=== PATIENT | male | born 1970 | race American Indian/Alaskan Native ===

== ENCOUNTER 2019-03-07 11:13 | Emergency (ER) | payer SELFPAY ==
--- NOTE | 2019-03-07 11:27 | Emergency Department Report ---
Blank Doc - Documentation Documentation: 48-year-old male that presents with noticing blood in his stool after whipping. Denies any abdominal pain or n/v. Denies any symptoms. Was sent by PCP. This initial assessment/diagnostic orders/clinical plan/treatment(s) is/are subject to change based on patient's health status, clinical progression and re- assessment by fellow clinical providers in the ED. Further treatment and workup at subsequent clinical providers discretion. Patient/guardians urged not to elope from the ED as their condition may be serious if not clinically assessed and managed. Initial orders include: 1- Patient sent to [facility] for further evaluation and treatment 2- labs 3- UA
[2019-03-07 13:26] LABS: Basophils # (Auto) 0.1 K/mm3 (0.0-0.1); Basophils % (Auto) 1.2 % (0.0-1.8); Eosinophils # (Auto) 1.1 K/mm3 (0.0-0.4); Eosinophils % (Auto) 9.9 % (0.0-4.3); Hematocrit 52.5 % (35.5-45.6); Hemoglobin 17.7 gm/dl (11.8-15.2); Lymphocytes # (Auto) 2.2 K/mm3 (1.2-5.4); Mean Corpuscular HGB Conc 34 % (32-34); Mean Corpuscular Volume 87 fl (84-94); Monocytes # (Auto) 0.8 K/mm3 (0.0-0.8); Monocytes % (Auto) 7.3 % (0.0-7.3); Platelet Count 299 K/mm3 (140-440); Red Blood Count 6.01 M/mm3 (3.65-5.03); Red Cell Distribution Width 14.5 % (13.2-15.2)
[2019-03-07 15:12] LABS: Alanine Aminotransferase 19 units/L (7-56); Albumin 3.8 g/dL (3.9-5); BUN/Creatinine Ratio 10; Blood Urea Nitrogen 9 mg/dL (9-20); Calcium 8.8 mg/dL (8.4-10.2); Hemolysis Index 3
--- NOTE | 2019-03-07 15:50 | Emergency Department Report ---
ED General Adult HPI - General Chief complaint: GI Bleed Stated complaint: BLOOD IN STOOL Time Seen by Provider: 03/07/19 11:25 Source: patient Mode of arrival: Ambulatory Limitations: No Limitations - History of Present Illness Initial comments: Patient is a 48-year-old -[place]iss male with no significant past medical history who is presenting with possible GI bleed. Patient states that yesterday he had 2 episodes where he noticed large amount of blood on the toilet paper after having bowel movement. Patient denies straining. Patient states is been no pain. Patient states the blood was coating the stool but did not fill toilet. stool was was well formed and there was no watery diarrhea. Patient denies abdominal pain nausea vomiting at this time. ED Review of Systems ROS: Stated complaint: BLOOD IN STOOL Other details as noted in HPI Comment: All other systems reviewed and negative ED Past Medical Hx - Past Medical History Previous Medical History?: No - Surgical History Past Surgical History?: No - Social History Smoking Status: Current Every Day Smoker Substance Use Type: Alcohol, Marijuana ED Physical Exam - General Limitations: No Limitations General appearance: alert, in no apparent distress - Head Head exam: Present: atraumatic, normocephalic - Eye Eye exam: Present: normal appearance - ENT ENT exam: Present: mucous membranes moist - Neck Neck exam: Present: normal inspection - Respiratory Respiratory exam: Present: normal lung sounds bilaterally. Absent: respiratory distress - Cardiovascular Cardiovascular Exam: Present: regular rate, normal rhythm. Absent: systolic murmur, diastolic murmur, rubs, gallop - GI/Abdominal GI/Abdominal exam: Present: soft, normal bowel sounds. Absent: distended, tenderness, guarding, rebound - Rectal Rectal exam: Present: normal inspection, heme (-) stool. Absent: black stool, bloody stool, fecal impaction, hemorrhoids - Extremities Exam Extremities exam: Present: normal inspection - Back Exam Back exam: Present: normal inspection - Neurological Exam Neurological exam: Present: alert, oriented X3 - Psychiatric Psychiatric exam: Present: normal affect, normal mood - Skin Skin exam: Present: warm, dry, intact, normal color. Absent: rash ED Course Vital Signs 03/07/19 11:25 Temperature 98.4 F Pulse Rate 109 H Respiratory 15 Rate Blood Pressure 112/78 O2 Sat by Pulse 96 Oximetry ED Medical Decision Making - Lab Data Result diagrams: 03/07/19 13:12 03/07/19 13:12 - Medical Decision Making And had a negative occult blood stool. Patient likely with a small internal hemorrhoid that bled but has stopped. No further bleeding is appreciated this time the patient laboratory studies are within normal limits. Patient stable for discharge. Patient be given follow-up with GI as needed. Critical care attestation.: If time is entered above; I have spent that time in minutes in the direct care of this critically ill patient, excluding procedure time. ED Disposition Clinical Impression: Hematochezia Disposition: DC-01 TO HOME OR SELFCARE Is pt being admited?: No Does the pt Need Aspirin: No Condition: Stable Instructions: Rectal Bleeding (ED), Hemorrhoids (ED) Referrals: [facility] [Provider Group] - 3-5 Days Time of Disposition: 15:52
[2019-03-07 16:15] VITALS: BP 115/85
== END 2019-03-07 16:15 | disposition home or self-care (01) ==
LOC: ED 11:13
DX: K92.1 Melena (principal); F17.200 Nicotine dependence, unspecified, uncomplicated; F12.10 Cannabis abuse, uncomplicated
CPT/HCPCS: 36415; 80053; 85025; 99283

== ENCOUNTER 2019-03-23 06:03 | Emergency (ER) | payer SELFPAY ==
[2019-03-23] MEDS ORDERED: CYCLOBENZAPRINE 10 MG TAB PO ONE (07:37)
[2019-03-23] MEDS ORDERED: KETOROLAC 30 MG/1 ML INJ IM ONE (07:37)
--- NOTE | 2019-03-23 07:38 | Emergency Department Report ---
ED Back Pain/Injury HPI - General Chief Complaint: Back Pain/Injury Stated Complaint: BACK PAIN DUE TO WORK Time Seen by Provider: 03/23/19 07:36 Source: patient Limitations: No Limitations - History of Present Illness Initial Comments: This is a 40-year-old male with no prior medical history who presents to ED complaining of lower right-sided back pain that started Wednesday evening. 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 Patient states he's been having pain since then. Patient states pain is only localized to mid to right lower back. Patient denies any problems with his bowel movement or urination. He denies inability to walk. Patient is ambulatory and no loss of sensation. Complaint: back pain, back injury - Related Data Previous Rx's Medication Instructions Recorded Last Taken Type Cyclobenzaprine [Flexeril 10 MG 10 mg PO QHS #20 tablet 03/23/19 Unknown Rx TAB] Ibuprofen [Motrin] 800 mg PO Q8HR #20 tablet 03/23/19 Unknown Rx ED Review of Systems ROS: Stated complaint: BACK PAIN DUE TO WORK Other details as noted in HPI Comment: All other systems reviewed and negative ED Back Pain Physical Exam - Exam General: Vital signs noted. No distress. Alert and acting appropriately. Back/Abdomen: No Abdominal Tenderness, No Perithoracic Tenderness, No Perilumbar Tenderness, No Sacroiliac Tenderness, No Flank Tenderness, No Straight Leg Raise Pain Neuro: Yes Normal Sensation, Yes Normal DTR's, Yes Normal Gait, No Motor Weakness ED Course Vital Signs 03/23/19 06:07 Temperature 98.1 F Pulse Rate 92 H Respiratory 18 Rate Blood Pressure 113/78 O2 Sat by Pulse 97 Oximetry Ed Back Pain Tests - Tests Tests: Normal X Rays ED Medical Decision Making - Radiology Data Radiology results: report reviewed, image reviewed Fluoro Time In Minutes: LUMBAR SPINE 3 VIEWS INDICATION / CLINICAL INFORMATION: back pain COMPARISON: None available. FINDINGS: BONES / JOINT(S): No acute fracture or subluxation. Mild degenerative disc disease L4-L5. SOFT TISSUES: No significant abnormality. ADDITIONAL FINDINGS: None. Signer Name: Santo Judge MD Signed: 03/23/2019 8:16 AM Workstation Name: [id number] Transcribed By: ES Dictated By: Santo Judge MD Electronically Authenticated By: Santo Judge MD Signed Date/Time: 03/23/19 0816 - Medical Decision Making 48-year-old male presents to ED with low back muscle strain ED course: Patient received Toradol and Flexeril in ED. X-ray of the lumbar spine shows no acute process. Mild DJD noted. See report above Vital signs are normal patient is in no acute distress Discussed with patient follow-up with primary care physician. Discussed the patient and take medications as prescribed. Patient has no neurological deficit. Patient is alert and oriented 3 and understands all instructions given. Discussed drowsiness effect of Flexeril makes her drowsy and not to operate machinery while taking flexeril Critical care attestation.: If time is entered above; I have spent that time in minutes in the direct care of this critically ill patient, excluding procedure time. ED Disposition Clinical Impression: Strain of muscle, fascia and tendon of lower back, initial encounter Disposition: - TO HOME OR SELFCARE Is pt being admited?: No Does the pt Need Aspirin: No Condition: Stable Instructions: Muscle Strain (ED), Acute Low Back Pain (ED), Low Back Strain (ED) Additional Instructions: Make sure to follow up with the primary care physician as discussed. Take all your medications as you've been prescribed. If you have any worsening symptoms or develop new symptoms please return to ED immediately. Prescriptions: Cyclobenzaprine [Flexeril 10 MG TAB] 10 mg PO QHS #20 tablet Ibuprofen [Motrin] 800 mg PO Q8HR #20 tablet Referrals: [facility] [Primary Care Provider] - 3-5 Days Forms: Work/School Release Form(ED) Time of Disposition: 08:25
--- NOTE | 2019-03-23 08:21 | XRay Report ---
LUMBAR SPINE 3 VIEWS INDICATION / CLINICAL INFORMATION: back pain COMPARISON: None available. FINDINGS: BONES / JOINT(S): No acute fracture or subluxation. Mild degenerative disc disease L4-L5. SOFT TISSUES: No significant abnormality. ADDITIONAL FINDINGS: None. Signer Name: Santo Judge MD Signed: 03/23/2019 8:16 AM Workstation Name: [id number]
[2019-03-23 08:46] VITALS: BP 111/76
== END 2019-03-23 08:49 | disposition home or self-care (01) ==
LOC: ED 06:03
DX: S39.012A Strain of muscle, fascia and tendon of lower back, initial encounter (principal); X58.XXXA Exposure to other specified factors, initial encounter; Y93.89 Activity, other specified; Y92.89 Other specified places as the place of occurrence of the external cause; Y99.8 Other external cause status
CPT/HCPCS: 72100; 96372; 99283; J1885

== ENCOUNTER 2020-02-26 10:18 | Emergency (ER) | payer SELFPAY ==
[2020-02-26 10:23] VITALS: BP 128/89
--- NOTE | 2020-02-26 10:54 | XRay Report ---
RIGHT KNEE 3 VIEWS INDICATION: trauma, pain. Pain in right knee for 3 days COMPARISON: None. IMPRESSION: No acute osseous or soft tissue abnormality. No significant DJD. Signer Name: Michael Daniel Jr, MD Signed: 02/26/2020 10:49 AM Workstation Name: [id number]
--- NOTE | 2020-02-26 12:20 | Emergency Department Report ---
ED General Adult HPI - General Chief complaint: Extremity Injury, Lower Stated complaint: RT LEG PAIN Time Seen by Provider: 02/26/20 11:01 Source: patient Mode of arrival: Ambulatory Limitations: No Limitations - History of Present Illness Initial comments: 49-year-old -[place] male patient presents with complaints of right knee pain x 2 days. Patient states he twisted his knee while walking downstairs. He denies any direct trauma to the knee, redness, numbness/tingling/weakness in this leg, or decreased movement of the knee. He states pain worsens with bending of the knee and putting pressure on the knee. Patient rates his current pain is 8/10 in severity and states he has not tried any OTC medications - Related Data Previous Rx's Medication Instructions Recorded Last Taken Type Cyclobenzaprine [Flexeril 10 MG 10 mg PO QHS #20 tablet 03/23/19 Unknown Rx TAB] Ibuprofen [Motrin] 800 mg PO Q8HR #20 tablet 03/23/19 Unknown Rx Naproxen 500 mg PO Q12H PRN #12 tablet 12/10/19 Unknown Rx Ibuprofen [Motrin 800 MG tab] 800 mg PO Q8HR PRN #21 tablet 02/26/20 Unknown Rx Allergies Allergy/AdvReac Type Severity Reaction Status Date / Time No Known Allergies Allergy Unverified 12/10/19 18:51 ED Review of Systems ROS: Stated complaint: RT LEG PAIN Other details as noted in HPI Constitutional: denies: chills, diaphoresis, fever, malaise, weakness Musculoskeletal: joint swelling, arthralgia Skin: denies: change in color Neurological: abnormal gait (Secondary to pain per patient). denies: numbness, paresthesias Hematological/Lymphatic: denies: easy bleeding, easy bruising ED Past Medical Hx - Past Medical History Previous Medical History?: No - Surgical History Past Surgical History?: No - Social History Smoking Status: Current Some Day Smoker Substance Use Type: Alcohol - Medications Home Medications: Home Medications Medication Instructions Recorded Confirmed Last Taken Type Cyclobenzaprine [Flexeril 10 MG 10 mg PO QHS #20 tablet 03/23/19 Unknown Rx TAB] Ibuprofen [Motrin] 800 mg PO Q8HR #20 tablet 03/23/19 Unknown Rx Naproxen 500 mg PO Q12H PRN #12 tablet 12/10/19 Unknown Rx Ibuprofen [Motrin 800 MG tab] 800 mg PO Q8HR PRN #21 tablet 02/26/20 Unknown Rx ED Physical Exam - General Limitations: No Limitations General appearance: alert, in no apparent distress - Head Head exam: Present: atraumatic, normocephalic - Eye Eye exam: Present: normal appearance. Absent: scleral icterus - Respiratory Respiratory exam: Absent: respiratory distress - Cardiovascular Cardiovascular Exam: Present: regular rate - Expanded Lower Extremity Exam Right Knee exam: Present: full ROM, tenderness (Medial and lateral and posterior; clicking noted in knee with flexion and extension), swelling (Mild). Absent: laceration, ecchymosis, deformity, dislocation Lower Leg exam: Present: full ROM Ankle exam: Present: full ROM Foot/Toe exam: Present: full ROM Neuro vascular tendon exam: Absent: no vascular compromise, pulse deficit, motor deficit Gait: Positive: antalgic - Back Exam Back exam: Present: full ROM - Neurological Exam Neurological exam: Present: alert, oriented X3 - Skin Skin exam: Present: warm, dry, intact, normal color. Absent: rash, diaphoretic, erythema, ecchymosis ED Course Vital Signs 02/26/20 10:21 Temperature 98.7 F Pulse Rate 92 H Respiratory 18 Rate Blood Pressure 128/89 O2 Sat by Pulse 97 Oximetry ED Medical Decision Making - Radiology Data Radiology results: report reviewed Procedure(s): XR knee 3V RT Accession Number(s): [id number] cc: ED DOC, Fluoro Time In Minutes: RIGHT KNEE 3 VIEWS INDICATION: trauma, pain. Pain in right knee for 3 days COMPARISON: None. IMPRESSION: No acute osseous or soft tissue abnormality. No significant DJD. - Medical Decision Making 49-year-old -[place] male patient presents with complaints of right knee pain x 2 days. Patient states he twisted his knee while walking downstairs. He denies any direct trauma to the knee, redness, numbness/tingling/weakness in this leg, or decreased movement of the knee. He states pain worsens with bending of the knee and putting pressure on the knee. Patient rates his current pain is 8/10 in severity and states he has not tried any OTC medications. X-ray of the knee is negative for any acute abnormalities. There is some mild clicking of the right knee noted on exam. Right knee sprain with possible meniscal injury discussed with patient. Patient provided with knee brace and provided with crutches. Recommend follow-up with orthopedics and 3 to 5 days for further evaluation and treatment. His vitals are within normal limits, he is well-appearing, stable for discharge home. Strict return precautions were discussed in detail with patient who verbalizes understanding. Critical care attestation.: If time is entered above; I have spent that time in minutes in the direct care of this critically ill patient, excluding procedure time. ED Disposition Clinical Impression: Right knee sprain Qualifiers: Encounter type: initial encounter Involved ligament of knee: other ligament Qualified Code(s): S83.8X1A - Sprain of other specified parts of right knee, initial encounter Acute meniscal injury of right knee Qualifiers: Encounter type: initial encounter Qualified Code(s): S83.8X1A - Sprain of other specified parts of right knee, initial encounter Disposition: DC- TO HOME OR SELFCARE Is pt being admited?: No Condition: Stable Instructions: Knee Sprain (ED), Knee Immobilizer (ED) Prescriptions: Ibuprofen [Motrin 800 MG tab] 800 mg PO Q8HR PRN #21 tablet PRN Reason: pain Referrals: [facility] [Provider Group] - 3-5 Days
[2020-02-26] MEDS ORDERED: IBUPROFEN 800 MG TAB PO ONE (12:32)
== END 2020-02-26 13:10 | disposition home or self-care (01) ==
LOC: ED 10:18
DX: S83.8X1A Sprain of other specified parts of right knee, initial encounter (principal); F17.200 Nicotine dependence, unspecified, uncomplicated; Z79.899 Other long term (current) drug therapy; X58.XXXA Exposure to other specified factors, initial encounter; Y93.89 Activity, other specified; Y92.89 Other specified places as the place of occurrence of the external cause; Y99.8 Other external cause status
CPT/HCPCS: 99283

== ENCOUNTER 2020-04-25 11:35 | Emergency (ER) | payer SELFPAY ==
--- NOTE | 2020-04-25 12:13 | Emergency Department Report ---
ED Back Pain/Injury HPI - General Chief Complaint: Back Pain/Injury Stated Complaint: BACK/FIORELLA LEG PAIN Time Seen by Provider: 04/25/20 12:10 Source: patient Limitations: No Limitations - History of Present Illness Initial Comments: This is a 49-year-old male nontoxic, well nourished in appearance, no acute signs of distress presents to the ED with c/o of acute lower back pain with radiation to bilateral legs s/p trip and fall. Patient stated that the past 2 days had a mechinal trip and fall. Patient denies any trauma. Denies any bladder or bowel instability. Patient denies any urinary symptoms. Denies any fever, chills, nausea, vomiting, headache, stiff neck, chest pain or shortness of breath. Patient denies any numbness or tingling. Denies any allergies. MD Complaint: back pain -: days(s) Similar Symptoms Previously: Yes Radiation: none Severity: mild Severity scale (0 -10): 8 Quality: aching Consistency: constant Improves With: immobilization Worsens With: movement, walking Context: fall Associated Symptoms: denies other symptoms. denies: confusion, weakness, chest pain, numbness, difficulty walking, cough, difficulty urinating, diaphoresis, incontinence, fever/chills, constipation, headaches, abdominal pain, loss of appetite, malaise, nausea/vomiting, rash, seizure, shortness of breath, syncope - Related Data Previous Rx's Medication Instructions Recorded Last Taken Type Cyclobenzaprine [Flexeril 10 MG 10 mg PO QHS #20 tablet 03/23/19 Unknown Rx TAB] Ibuprofen [Motrin] 800 mg PO Q8HR #20 tablet 03/23/19 Unknown Rx Naproxen 500 mg PO Q12H PRN #12 tablet 12/10/19 Unknown Rx Ibuprofen [Motrin 800 MG tab] 800 mg PO Q8HR PRN #21 tablet 02/26/20 Unknown Rx Cyclobenzaprine [Flexeril] 10 mg PO QHS PRN #10 tablet 04/25/20 Unknown Rx Naproxen 500 mg PO Q12H PRN #12 tablet 04/25/20 Unknown Rx Allergies Allergy/AdvReac Type Severity Reaction Status Date / Time No Known Allergies Allergy Unverified 12/10/19 18:51 ED Review of Systems ROS: Stated complaint: BACK/FIORELLA LEG PAIN Other details as noted in HPI Comment: All other systems reviewed and negative Constitutional: denies: chills, fever Eyes: denies: eye pain, eye discharge, vision change ENT: denies: ear pain, throat pain Respiratory: denies: cough, shortness of breath, wheezing Cardiovascular: denies: chest pain, palpitations Endocrine: no symptoms reported Gastrointestinal: denies: abdominal pain, nausea, diarrhea Genitourinary: denies: urgency, dysuria Musculoskeletal: denies: back pain, joint swelling, arthralgia Skin: denies: rash, lesions Neurological: denies: headache, weakness, paresthesias Psychiatric: denies: anxiety, depression Hematological/Lymphatic: denies: easy bleeding, easy bruising ED Past Medical Hx - Past Medical History Additional medical history: RIGHT HIP AND BACK PAIN CHRONIC - Social History Smoking Status: Current Some Day Smoker Substance Use Type: Alcohol - Medications Home Medications: Home Medications Medication Instructions Recorded Confirmed Last Taken Type Cyclobenzaprine [Flexeril 10 MG 10 mg PO QHS #20 tablet 03/23/19 Unknown Rx TAB] Ibuprofen [Motrin] 800 mg PO Q8HR #20 tablet 03/23/19 Unknown Rx Naproxen 500 mg PO Q12H PRN #12 tablet 12/10/19 Unknown Rx Ibuprofen [Motrin 800 MG tab] 800 mg PO Q8HR PRN #21 tablet 02/26/20 Unknown Rx Cyclobenzaprine [Flexeril] 10 mg PO QHS PRN #10 tablet 04/25/20 Unknown Rx Naproxen 500 mg PO Q12H PRN #12 tablet 04/25/20 Unknown Rx ED Physical Exam - General Limitations: No Limitations General appearance: alert, in no apparent distress - Head Head exam: Present: atraumatic, normocephalic - Eye Eye exam: Present: normal appearance - Neck Neck exam: Present: normal inspection, full ROM. Absent: tenderness, meningismus, lymphadenopathy - Respiratory Respiratory exam: Present: normal lung sounds bilaterally. Absent: respiratory distress, wheezes, rales, rhonchi, stridor, chest wall tenderness, accessory muscle use, decreased breath sounds, prolonged expiratory - Cardiovascular Cardiovascular Exam: Present: regular rate, normal rhythm, normal heart sounds. Absent: bradycardia, tachycardia, irregular rhythm, systolic murmur, diastolic murmur, rubs, gallop - GI/Abdominal GI/Abdominal exam: Present: soft, normal bowel sounds. Absent: distended, tenderness, guarding, rebound, rigid, diminished bowel sounds - Extremities Exam Extremities exam: Present: normal inspection, full ROM - Back Exam Back exam: Present: normal inspection, full ROM, paraspinal tenderness (lumbar spine), vertebral tenderness (lumbar spine). Absent: tenderness, CVA tenderness (R), muscle spasm, rash noted - Neurological Exam Neurological exam: Present: alert, oriented X3 - Psychiatric Psychiatric exam: Present: normal affect, normal mood - Skin Skin exam: Present: warm, dry, intact, normal color. Absent: rash ED Course Vital Signs 04/25/20 12:12 Temperature 98.2 F Pulse Rate 92 H Respiratory 18 Rate Blood Pressure 127/90 O2 Sat by Pulse 98 Oximetry - Reevaluation(s) Reevaluation #1: 04/25/20 12:13 Patient is speaking in full sentences with no signs of distress noted. ED Medical Decision Making - Medical Decision Making This is a 49-year-old male that presents with low back strain. Patient is stable was examined by me. Patient is notifeid of the CT pelvic and lumbar spine results with no questions noted by the patient. CT unremarkable as per radiologist. There is no cauda equina syndrome during examination. No bladder or bowel instability. Patient received treatment in the ED which stated symptoms has improved and subsideded. Patient is discharged with muscle relaxant and NSAID. Patient was instructed not to operate any machinery while taking muscle relaxant as they cause her drowsiness. Patient was referred to Follow-up with a primary care doctor in 3-5 days or if symptoms worsen and continue return to emergency room as soon as possible. At time of discharge, the patient does not seem toxic or ill in appearance. No acute signs of distress noted. Patient agrees to discharge treatment plan of care. No further questions noted by the patient. Critical care attestation.: If time is entered above; I have spent that time in minutes in the direct care of this critically ill patient, excluding procedure time. ED Disposition Clinical Impression: Fall, Low back strain Disposition: DC-01 TO HOME OR SELFCARE Is pt being admited?: No Does the pt Need Aspirin: No Condition: Stable Instructions: Lumbar Sprain Additional Instructions: Follow-up with a primary care doctor in 3-5 days or if symptoms worsen and continue return to emergency room as soon as possible. Do not operate any machinery while taking Flexeril as it can cause drowsiness. Prescriptions: Cyclobenzaprine [Flexeril] 10 mg PO QHS PRN #10 tablet PRN Reason: Muscle Spasm Naproxen 500 mg PO Q12H PRN #12 tablet PRN Reason: Pain , Severe (7-10) Referrals: PRIMARY [facility] [Primary Care Provider] - 3-5 Days RAMAN HUGHES MD [Staff Physician] - 3-5 Days Forms: Work/School Release Form(ED)
[2020-04-25 12:14] VITALS: BP 127/90
[2020-04-25] MEDS ORDERED: HYDROcodone/ACETAMINOPHEN 10-325MG TAB PO ONE (12:15)
[2020-04-25] MEDS ORDERED: predniSONE 20 MG TAB PO ONE (12:15)
[2020-04-25] MEDS ORDERED: KETOROLAC 60 MG/2 ML INJ IM ONE (12:15)
--- NOTE | 2020-04-25 13:37 | Cat Scan Report ---
CT LUMBAR SPINE WITHOUT CONTRAST INDICATION / CLINICAL INFORMATION: Low back pain. Patient fell sustaining back injury. TECHNIQUE: Axial CT images were obtained through the lumbar spine. Sagittal and coronal reformatted images were produced. All CT scans at this location are performed using CT dose reduction for ALARA by means of a utomated exposure control. COMPARISON: None available. FINDINGS: TRAUMA:There is no indication of fracture or traumatic subluxation. ALIGNMENT: Normal alignment is maintained throughout the lumbar region. VERTEBRAE: No significant abnormality. DISC SPACES: Disc height is normally maintained throughout. DEGENERATIVE CHANGES: Facet arthropathy is demonstrated at the L4-5 level. Hypertrophic changes and i ncreased space between the inferior and superior articular facets is observed bilaterally. Facet join t effusions are suspected. In addition broad-based disc bulge is present at the L4-5 level. These deg enerative changes narrow the central spinal canal slightly. Mild broad-based disc bulge is observed a t the L5-S1 level. SPINAL CANAL: Central spinal canal is adequate in size throughout the lumbar region. SACRUM:No significant abnormality of the visualized sacrum.. PARASPINAL SOFT TISSUES: No significant abnormality. ADDITIONAL FINDINGS: None. IMPRESSION: 1. No indication of fracture or traumatic subluxation. 2. Degenerative changes L4-5 and L5-S1 levels as described above. Signer Name: Ernst Rausch MD Signed: 04/25/2020 1:33 PM Workstation Name: [id number]
--- NOTE | 2020-04-25 13:56 | Cat Scan Report ---
CT PELVIS WITHOUT CONTRAST INDICATION / CLINICAL INFORMATION: pain s/p fall. TECHNIQUE: Axial CT images were obtained through the pelvis without contrast. All CT scans at this location are performed using CT dose reduction for ALARA by means of automated exposure control. COMPARISON: None available. FINDINGS: BONES: No fracture. No osseous lesion. HIP JOINTS: No dislocation. Mild bilateral hip arthrosis. SACROILIAC JOINTS: No significant abnormality. SOFT TISSUES: No significant abnormality. LOWER LUMBAR SPINE: No significant abnormality. SOFT TISSUES WITHIN PELVIS: Mild vascular calcification. ADDITIONAL FINDINGS: None. IMPRESSION: 1. No acute fracture or dislocation. 2. Mild bilateral hip arthrosis. Signer Name: Segundo Schmitt MD Signed: 04/25/2020 1:51 PM Workstation Name: [id number]
== END 2020-04-25 14:20 | disposition home or self-care (01) ==
LOC: ED 11:35
DX: S39.012A Strain of muscle, fascia and tendon of lower back, initial encounter (principal); F17.200 Nicotine dependence, unspecified, uncomplicated; Z79.899 Other long term (current) drug therapy; W01.0XXA Fall on same level from slipping, tripping and stumbling without subsequent striking against object, initial encounter; Y93.89 Activity, other specified; Y92.89 Other specified places as the place of occurrence of the external cause; Y99.8 Other external cause status
CPT/HCPCS: 72131; 72192; 96372; 99283; J1885; J7512

== ENCOUNTER 2020-09-19 11:51 | Emergency (ER) | payer SELFPAY | END 2020-09-19 22:07 | disposition home or self-care (01) | LOC: ED 11:51 | CPT/HCPCS: 36415; 71046; 80053; 84484; 85025; 93005 ==

== ENCOUNTER 2021-02-03 07:00 | Emergency (ER) | payer OTHER ==
[2021-02-03 07:23] VITALS: BP 131/83
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
[2021-02-03] MEDS ORDERED: ACETAMINOPHEN 325 MG TAB PO ONE (08:01)
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
[2021-02-03] MEDS ORDERED: dexAMETHasone 20 MG/5 ML VIAL IM ONE (10:44)
[2021-02-03] MEDS ORDERED: KETOROLAC 60 MG/2 ML INJ IM ONE (10:44)
== END 2021-02-03 11:14 | disposition home or self-care (01) ==
LOC: ED 07:00
DX: S63.8X2A Sprain of other part of left wrist and hand, initial encounter (principal); S63.8X1A Sprain of other part of right wrist and hand, initial encounter; S16.1XXA Strain of muscle, fascia and tendon at neck level, initial encounter; M50.30 Other cervical disc degeneration, unspecified cervical region; S39.012A Strain of muscle, fascia and tendon of lower back, initial encounter; M19.90 Unspecified osteoarthritis, unspecified site; V89.2XXA Person injured in unspecified motor-vehicle accident, traffic, initial encounter; Y93.89 Activity, other specified; Y92.488 Other paved roadways as the place of occurrence of the external cause; Y99.8 Other external cause status
CPT/HCPCS: 70450; 72125; 72128; 72131; 73130; 96372; 99284; J1100; J1885

== ENCOUNTER 2021-10-02 10:09 | Outpatient (CLI) | payer OTHER ==
--- NOTE | 2021-10-02 11:18 | XRay Report ---
Lumbar spine-3 views INDICATION: NERVE AND UPPER BODY PAIN. COMPARISON: None. IMPRESSION: Normal alignment. 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 No acute osseous or soft tiss ue abnormality. Signer Name: Adal Mancilla MD Signed: 10/02/2021 11:13 AM Workstation Name: [id number]
== END 2021-10-02 10:10 | disposition home or self-care (01) ==
LOC: XRAY 10:09
PROVIDERS: ATTEND Internal Medicine
DX: M47.817 Spondylosis without myelopathy or radiculopathy, lumbosacral region (principal)
CPT/HCPCS: 72100

== ENCOUNTER 2021-11-30 21:32 | Emergency (ER) | payer SELFPAY ==
[2021-11-30] MEDS ORDERED: ASPIRIN 325 MG TAB PO ONE (22:12)
[2021-11-30 22:47] LABS: Basophils # (Auto) 0.1 K/mm3 (0.0-0.1); Eosinophils # (Auto) 1.2 K/mm3 (0.0-0.4); Eosinophils % (Auto) 14.2 % (0.0-4.3); Lymphocytes # (Auto) 1.7 K/mm3 (1.2-5.4); Lymphocytes % (Auto) 19.6 % (13.4-35.0); Mean Corpuscular HGB Conc 35 % (32-34); Mean Corpuscular Volume 85 fl (84-94); Monocytes # (Auto) 0.6 K/mm3 (0.0-0.8); Monocytes % (Auto) 6.8 % (0.0-7.3); Platelet Count 243 K/mm3 (140-440); Red Blood Count 4.33 M/mm3 (3.65-5.03); Red Cell Distribution Width 14.8 % (13.2-15.2)
--- NOTE | 2021-11-30 22:59 | XRay Report ---
CHEST 2 VIEWS INDICATION / CLINICAL INFORMATION: chest tightness. COMPARISON: Chest x-ray 09/19/2020 FINDINGS: SUPPORT DEVICES: None. HEART / MEDIASTINUM: Heart size and mediastinal contour appear within normal limits. LUNGS / PLEURA: No significant pulmonary or pleural abnormality. No pneumothorax. BONES: No significant osseous abnormality. ADDITIONAL FINDINGS: No significant additional findings. IMPRESSION: 1. No active cardiopulmonary disease. Signer Name: Marcel Pierre II, MD Signed: 11/30/2021 10:54 PM Workstation Name: [id number]
[2021-11-30 23:05] LABS: Alanine Aminotransferase 29 units/L (7-56); Albumin 4.3 g/dL (3.9-5); BUN/Creatinine Ratio 10; Blood Urea Nitrogen 9 mg/dL (9-20); Calcium 9.1 mg/dL (8.4-10.2); Hemolysis Index 7
--- NOTE | 2021-11-30 23:25 | Emergency Department Report ---
ED Chest Pain HPI - General Chief Complaint: Chest Pain Stated Complaint: TINGLING/PAIN Time Seen by Provider: 11/30/21 23:20 Source: patient Mode of arrival: Stretcher Limitations: No Limitations - History of Present Illness Initial Comments: 51-year-old male who presents with chest pressure associated with both hands tingling and numbness that started around 8:32 PM tonight. Patient also reports some frontal headache radiating to the back of the head. No visual changes reported. Patient denies any past medical history and not taking any medication at this time. Patient also denies any illicits drug use. No other modifying or associated factors reported. Severity scale (0 -10): 4 - Related Data Previous Rx's Medication Instructions Recorded Last Taken Type Ibuprofen [Motrin] 600 mg PO Q8H PRN #30 tablet 02/03/21 Unknown Rx methOCARBAMOL [Robaxin TAB] 750 mg PO Q8H PRN #30 tablet 02/03/21 Unknown Rx methylPREDNISolone [Medrol 4MG 4 mg PO DAILY #1 tab.ds.pk 02/03/21 Unknown Rx DOSEPAK (21 tabs)] hydrOXYzine PAMOATE [Vistaril] 50 mg PO Q6HR PRN 5 Days #20 12/01/21 Unknown Rx capsule NS Allergies Allergy/AdvReac Type Severity Reaction Status Date / Time No Known Allergies Allergy Unverified 02/03/21 07:23 Heart Score - HEART Score History: Slightly suspicious EKG: Normal Age: 45-65 Risk factors: No known risk factors Troponin: < normal limit HEART Score: 1 - EKG Read Time Time EKG Completed: 09:00 EKG Read Time: 09:20 - Critical Actions Critical Actions: 0-3 pts:0.9-1.7%risk of adverse cardiac event.Candidate for discharge ED Review of Systems ROS: Stated complaint: TINGLING/PAIN Other details as noted in HPI Comment: All other systems reviewed and negative Cardiovascular: chest pain Neurological: numbness, other (tingling ) ED Past Medical Hx - Past Medical History Previous Medical History?: Yes Hx Asthma: Yes Additional medical history: RIGHT HIP AND BACK PAIN CHRONIC - Surgical History Past Surgical History?: No Hx Appendectomy: No - Social History Smoking Status: Current Every Day Smoker Substance Use Type: None - Medications Home Medications: Home Medications Medication Instructions Recorded Confirmed Last Taken Type Ibuprofen [Motrin] 600 mg PO Q8H PRN #30 tablet 02/03/21 11/30/21 Unknown Rx methOCARBAMOL [Robaxin TAB] 750 mg PO Q8H PRN #30 tablet 02/03/21 11/30/21 Unkn own Rx methylPREDNISolone [Medrol 4MG 4 mg PO DAILY #1 tab.ds.pk 02/03/21 11/30/21 Unknown Rx DOSEPAK (21 tabs)] hydrOXYzine PAMOATE [Vistaril] 50 mg PO Q6HR PRN 5 Days #20 12/01/21 Unknown Rx capsule NS ED Physical Exam - General Limitations: No Limitations General appearance: alert, in no apparent distress - Head Head exam: Present: normal inspection - Eye Eye exam: Present: normal appearance - ENT ENT exam: Present: normal exam, normal orophraynx - Neck Neck exam: Present: normal inspection, full ROM. Absent: tenderness - Respiratory Respiratory exam: Present: normal lung sounds bilaterally. Absent: respiratory distress, accessory muscle use - Cardiovascular Cardiovascular Exam: Present: regular rate, normal rhythm, normal heart sounds - GI/Abdominal GI/Abdominal exam: Present: soft, normal bowel sounds. Absent: distended, tenderness - Extremities Exam Extremities exam: Present: normal inspection, full ROM, normal capillary refill. Absent: tenderness, pedal edema - Back Exam Back exam: Present: normal inspection. Absent: tenderness - Neurological Exam Neurological exam: Present: alert, oriented X3 - Psychiatric Psychiatric exam: Present: normal affect, normal mood - Skin Skin exam: Present: warm, dry ED Course Vital Signs 11/30/21 11/30/21 11/30/21 22:05 22:10 22:12 Temperature 98.1 F 97.0 F L Pulse Rate 92 H 87 88 Respiratory 18 15 Rate Blood Pressure 141/88 Blood Pressure 125/83 [Left] O2 Sat by Pulse 98 98 98 Oximetry 12/01/21 12/01/21 12/01/21 00:11 01:48 02:49 Temperature Pulse Rate 74 75 74 Respiratory 15 14 18 Rate Blood Pressure Blood Pressure 121/82 114/75 122/81 [Left] O2 Sat by Pulse 98 98 99 Oximetry 12/01/21 12/01/21 03:51 04:10 Temperature Pulse Rate 70 78 Respiratory 18 13 Rate Blood Pressure Blood Pressure 115/76 152/89 [Left] O2 Sat by Pulse 98 98 Oximetry CLARA score - Clara Score Age > 65: (0) No Aspirin use within the Past 7 Days: (0) No 3 or more CAD Risk Factors: (0) No 2 or more Angina events in past 24 hrs: (0) No Known CAD with more than 50% Stenosis: (0) No Elevated Cardiac Markers: (0) No ST Deviation Greater than 0.5mm: (0) No CLARA Score: 0 ED Medical Decision Making - Lab Data Result diagrams: 11/30/21 22:30 11/30/21 22:30 - Medical Decision Making Here with chest pain/pressure--even though this is likely anxiety related but other differential could be but not limited to myocardial infarction, pulmonary embolism, costochondritis, anxiety, gastritis, GERD, pancreatitis, and or pyelonephritis--in order to rule out the above-- so will go ahead and order routine cardiopulmonary work-up that include troponin, EKG, chest x-ray, BNP, CKMB, and CBC, CMP and urinalysis for any correctable infectious process or electrolyte abnormality as a cause. In the meantime will give aspirin 325 mg PO x 1 and 2 mg ativan iv x 1 while waiting for the above labs Critical care attestation.: If time is entered above; I have spent that time in minutes in the direct care of this critically ill patient, excluding procedure time. ED Disposition Clinical Impression: Anxiety, Non-cardiac chest pain Chest pain Qualifiers: Chest pain type: unspecified Qualified Code(s): R07.9 - Chest pain, unspecified Disposition: 01 HOME / SELF CARE / HOMELESS Is pt being admited?: No Does the pt Need Aspirin: No Condition: Stable Instructions: Nonspecific Chest Pain, Adult, Nonspecific Chest Pain, Adult, [id number] Additional Instructions: Take your new medication as prescribed to help your symptoms Call and schedule follow-up with your primary doctor in the next 3 to 5 days for progress Please do not hesitate to call or return to emergency room if your symptoms worsen Prescriptions: hydrOXYzine PAMOATE [Vistaril] 50 mg PO Q6HR PRN 5 Days #20 capsule NS PRN Reason: Pain , Severe (7-10) Referrals: RAMAN HUGHES MD [Primary Care Provider] - 3-5 Days Time of Disposition: 04:00
[2021-11-30] MEDS ORDERED: ASPIRIN 81 MG TAB CHEW PO ONE (23:30)
[2021-11-30] MEDS ORDERED: LORazepam 2 MG/ML VIAL IV ONE (23:30)
[2021-12-01 04:11] VITALS: BP 152/89
--- NOTE | 2021-12-02 12:36 | Electrocardiograph Report ---
[facility] Test Date: 2021-11-30 Test Time: 23:55:49 Pat Name: UMU GUZMÁN Department: Room: Gender: M Graphic Artist: REGGIE : 1970 Requested By: SIDDHARTH OWENS Order Number: [id number] Reading MD: Home Perkins Measurements Intervals [place] Rate: 71 P: 50 MO: 121 QRS: 19 QRSD: 96 T: 36 QT: 375 QTc: 408 Interpretive Statements Sinus rhythm Normal ECG Compared to ECG 09/19/2020 12:07:47 No significant changes Electronically Signed On 12-02-2021 12:36:27 EDT by Home Perkins
== END 2021-12-01 04:10 | disposition home or self-care (01) ==
LOC: ED 21:32
DX: R07.9 Chest pain, unspecified (principal); F32.A Depression, unspecified; J45.909 Unspecified asthma, uncomplicated; F17.200 Nicotine dependence, unspecified, uncomplicated; Z79.899 Other long term (current) drug therapy
CPT/HCPCS: 36415; 71046; 80053; 82962; 84484; 85025; 93005; 96374; 99284; J2060